=== PATIENT | female | born 1995 | race American Indian/Alaskan Native ===

== ENCOUNTER 2016-04-20 16:24 | Emergency (ER) | payer SELFPAY ==
[2016-04-20 16:51] VITALS: BP 123/69
== END 2016-04-20 20:26 | disposition left against medical advice (07) ==
LOC: ED 16:24
DX: T78.40XA Allergy, unspecified, initial encounter (principal); R22.0 Localized swelling, mass and lump, head; Y92.9 Unspecified place or not applicable